=== PATIENT | female | born 1925 | race Caucasian/White ===

== ENCOUNTER 2016-12-11 05:35 | Day surgery (SDC) | payer MEDICARE, BC ==
[~2016-12-11 05:35] MED LIST: Dextrose 5%-0.45% NaCl 1,000 ML IV SCH; Sodium Chloride 0.9% 10 ML Syringe FLUSH PRN
[2016-12-11] MEDS ORDERED: fentaNYL 100 MCG/2 ML SDV ONE (06:16)
[2016-12-11] MEDS ORDERED: Midazolam 1 MG/ML 2 ML SDV ONE (06:16)
[2016-12-11] MEDS ORDERED: fentaNYL 100 MCG/2 ML SDV IV ONE ×2 (06:34→06:35)
[2016-12-11] MEDS ORDERED: Midazolam 1 MG/ML 2 ML SDV IV ONE ×5 (06:37→06:57)
[2016-12-11 09:08] VITALS: BP 114/59
--- NOTE | 2016-12-11 09:55 | OR ---
DATE: 12/11/2016 PROCEDURES: Total colonoscopy, NBI, and multiple pinch biopsies. INSTRUMENT USED: CF-H180AL Olympus video colonoscope. PREMEDICATIONS: Fentanyl 100 mcg intravenous, Versed 3 mg intravenous, and nasal O2 cannula. The procedure was done under pulse oximetry, BP recording, and monitoring tech. INDICATION: The patient with unexplained iron-deficiency anemia. Colonoscopic examination is done for detection of any polypoid lesions and removal, endoscopic hemostasis therapy if needed. DESCRIPTION OF PROCEDURE: Initial rectal exam showed external hemorrhoidal tags. Rigid anoscopy showed some collapse of the mucosa as well as moderate- sized internal hemorrhoids without bleeding from them. The colonoscope was passed with ease. Numerous scattered diverticula were noted in the distal left colon along with deformity. The scope was passed with relative ease up to the ileocecal area. Photographs were taken of the normal- appearing cecum, identified by double-bulged ileocecal folds. No bleeding was noted from any of the visualized areas at the commencement of the examination. No stricture. No vascular ectasia. No large isolated ulcerations seen. No evidence of diffuse inflammatory bowel disease in the form of friability, contact bleeding, or ulcerations. Probing the proximal sides of folds and flexures, using adequate distention and clearing up the stool material, withdrawal of the scope was made. In the distal sigmoid colon, at around 10 cm proximal to the anal verge just over 1 cm sized sessile polyp was noted, NBI views were taken, photographs were obtained, numerous pinch biopsies were obtained and sent for histopathology. No bleeding was noted from any of the visualized areas at the completion of examination. IMPRESSION: External and internal hemorrhoids. Diverticulosis. Sigmoid Polyp. Patient tolerated the procedure well. [facility] /[id number] ELZA
== END 2016-12-11 09:20 | disposition home or self-care (01) ==
LOC: DL.ENDO 05:35
PROVIDERS: ATTEND Internal Medicine Gastroenterology
DX: C18.7 Malignant neoplasm of sigmoid colon (principal); K64.4 Residual hemorrhoidal skin tags; K57.30 Diverticulosis of large intestine without perforation or abscess without bleeding; K64.8 Other hemorrhoids; I10 Essential (primary) hypertension; E66.09 Other obesity due to excess calories; M19.90 Unspecified osteoarthritis, unspecified site; K21.9 Gastro-esophageal reflux disease without esophagitis; F41.1 Generalized anxiety disorder; F03.90 Unspecified dementia, unspecified severity, without behavioral disturbance, psychotic disturbance, mood disturbance, and anxiety; Z79.82 Long term (current) use of aspirin; Z79.01 Long term (current) use of anticoagulants; Z79.899 Other long term (current) drug therapy; Z98.890 Other specified postprocedural states
CPT/HCPCS: 45380; J7042; 88305; 88341; 88342; J2250; J3010